=== PATIENT | female | born 1970 | race Caucasian/White ===

== ENCOUNTER 2018-05-06 00:28 | Outpatient (CLI) | payer OTHER, SELFPAY ==
--- NOTE | 2018-05-06 08:15 | DI.MAMMO_ITS ---
SYMPTOM/DIAGNOSIS: SCREENING, [facility] Z00.00 BILATERAL SCREENING MAMMOGRAM: Mammograms were interpreted according to the usual protocol including computer analysis with CAD system, tomosynthesis and C view imaging. Comparison is made with exams from 2008 through 2017. The patient is status post breast reduction. There are mild bilateral areas of scarring. The breasts are composed of heterogeneously dense fibroglandular tissue, breast density category C. No suspicious masses or suspicious microcalcifications are seen. There has been no change when compared with the post reduction exams. IMPRESSION: Category 2-C, negative mammogram with benign findings. Yearly screening mammography is recommended. [facility] [[email or web address]] ASSESSMENT OF FINDINGS: Negative with benign findings. Category 2. Patient will receive a letter notifying them of these results. Bi-RADS category C. The breasts are heterogeneously dense, which may obscure small masses.
== END 2018-05-06 00:48 ==
PROVIDERS: PCP Family Medicine; Visit Provider Family Medicine
DX: Z00.00 Encounter for general adult medical examination without abnormal findings (principal); Z12.31 Encounter for screening mammogram for malignant neoplasm of breast
CPT/HCPCS: 77063; 77067

== ENCOUNTER 2018-09-23 08:53 | Outpatient (REF) | payer OTHER, SELFPAY ==
[2018-09-24 08:30] LABS: Anion Gap 5.8 mmol/L (3-11); BUN 16 mg/dL (7-18); CO2 32.2 mmol/L (21.0-32.0); CREATININE 0.96 mg/dL (0.55-1.02); Calcium 8.6 mg/dL (8.5-10.1); Chloride 105 mmol/L (98-107); Glucose 93 mg/dL (70-100); Potassium 3.6 mmol/L (3.5-5.1); Sodium 143 mmol/L (136-145)
[2018-09-24 18:40] LABS: Cholesterol 134 mg/dL (50-200); HDL Cholesterol 45 mg/dL (40-60); LDL CHOLESTEROL 78 mg/dL (<100); Triglyceride 62 mg/dL (30-150)
[2018-09-25 05:15] LABS: Vitamin D 25 Total 33.2 ng/ml (30-100)
== END 2018-09-23 09:13 ==
LOC: NCHCN 08:53
PROVIDERS: PCP Family Medicine; Visit Provider Family Medicine
DX: Z00.00 Encounter for general adult medical examination without abnormal findings (principal); E55.9 Vitamin D deficiency, unspecified
CPT/HCPCS: 80048; 80061; 82306; 83721

== ENCOUNTER 2019-05-26 00:40 | Outpatient (CLI) | payer OTHER, SELFPAY ==
--- NOTE | 2019-05-26 15:30 | DI.MAMMO_ITS ---
EXAM: MG MAMMO SCREENING CLINICAL HISTORY: SCREENING, Z12.39. TECHNIQUE: Bilateral full field digital CC and MLO mammographic images were obtained with 3D tomosyn thesis and utilizing computer aided detection (CAD). COMPARISON: There are multiple priors with the most recent from 05/06/2018. FINDINGS: Masses/Architectural Distortion: There again seen postsurgical changes of bilateral breast reduction. There is asymmetric density in the posterior left breast seen on the mediolateral oblique view. Th is may represent normal fibroglandular tissue. Spot compression view is requested for further evalua tion. Ultrasound may be indicated at that time. Microcalcifications: No suspicious pleomorphic-type are seen. IMPRESSION: 1. Asymmetric breast tissue in the posterior upper left breast on the mediolateral oblique view. Spo t compression view and ultrasound are requested for further evaluation. BI-RADS Cat 0 - Assessment Incomplete: Need additional imaging evaluation Breast Density - Category B - Scattered areas of fibroglandular density A negative radiographic report should not delay biopsy if a dominant or clinically suspicious mass is present. Up to ten percent of cancers are not identified on mammography. A negative report may reinforce clinical impression. Adenosis and dense breasts may obscure an underlying neoplasm. False positive reports average 6 to 10%.
== END 2019-05-26 01:00 ==
PROVIDERS: PCP Family Medicine; Visit Provider Family Medicine
DX: Z12.31 Encounter for screening mammogram for malignant neoplasm of breast (principal); R92.8 Other abnormal and inconclusive findings on diagnostic imaging of breast
CPT/HCPCS: 77063; 77067

== ENCOUNTER 2019-05-29 00:23 | Outpatient (CLI) | payer OTHER, SELFPAY ==
--- NOTE | 2019-05-29 14:00 | DI.US_ITS ---
EXAM: MG MAMMO SCREEN CALL BACK UNI AND US BREAST LT LIMITED CLINICAL HISTORY: S/P ABNORMAL MAMMO, ASYMMETRIC DENSITY IN POSTERIOR LT BREAST. TECHNIQUE: Additional images are interpreted according to the usual protocol including tomosynthesis and 2D imaging. Ultrasound was performed using standard protocol. COMPARISON: MAMMOGRAM FROM 05/26/19 FINDINGS: Additional mammographic views of the left breast and left breast ultrasound are interpreted in conjun ction. These examinations were obtained to evaluate questionable area of asymmetric density projecte d posteriorly in the lateral portion of the breast on recent mammogram. Additional mammographic view s fail to show a discrete mass. Breast ultrasound shows no evidence of a mass or cyst. IMPRESSION: No specific evidence of malignancy at this time. Follow-up unilateral left breast mammogram requested in 6 months. Category 3, breast density category B. BI-RADS Cat 3 - 6 month - Probably Benign Finding: Recommend follow-up mammography in 6 months Breast Density - Category B - Scattered areas of fibroglandular density
== END 2019-05-29 00:43 ==
PROVIDERS: PCP Family Medicine; Visit Provider Family Medicine
DX: Z12.31 Encounter for screening mammogram for malignant neoplasm of breast (principal); R92.8 Other abnormal and inconclusive findings on diagnostic imaging of breast; N64.59 Other signs and symptoms in breast
CPT/HCPCS: 76642; 77063; 77067

== ENCOUNTER 2019-12-07 01:44 | Outpatient (CLI) | payer OTHER, SELFPAY ==
--- NOTE | 2019-12-07 | DI.MAMMO_ITS ---
EXAM: MG MAMMO DIAGNOSTIC UNI CLINICAL HISTORY: 6 MO F/U, F/U ABNL MAMMO, Z87.898. COMPARISON: Screening Bilat Mammo from 12/15/2013 Screening Bilat Mammo from 12/27/2015 Screening Bilat Mammo from 05/03/2017 MG mammo screening from 05/06/2018 MG MAMMO SCREENING from 05/26/2019 MG MAMMO SCREEN CALL BACK UNI from 05/29/2019 TECHNIQUE: Craniocaudal and mediolateral oblique Full Field Digital Mammography views of the left br east with Computer Aided Diagnosis and tomosynthesis imaging were performed. FINDINGS: Mammography/Tomosynthesis left breast: This is a six-month follow-up exam for a previously questioned posterior asymmetric density. Masses/Architectural Distortion: None seen. Scarring related to breast reduction is noted. Microcalcifications: No suspicious pleomorphic-type are seen. Skin Thickening/Nipple Retraction: None. IMPRESSION: 1. No evidence of malignancy is noted. 2. Unless there is more urgent need, follow-up screening mammography is recommended, as per [employer] guidelines. BI-RADS Cat 2 - Benign Findings Breast Density - Category B - Scattered areas of fibroglandular density A negative radiographic report should not delay biopsy if a dominant or clinically suspicious mass is present. Up to ten percent of cancers are not identified on mammography. A negative report may reinforce clinical impression. Adenosis and dense breasts may obscure an underlying neoplasm. False positive reports average 6 to 10%. Patient will receive a letter notifying them of these results.
== END 2019-12-07 02:04 ==
PROVIDERS: PCP Family Medicine; Referring Provider Family Medicine; Visit Provider Family Medicine
DX: Z12.31 Encounter for screening mammogram for malignant neoplasm of breast (principal); R92.8 Other abnormal and inconclusive findings on diagnostic imaging of breast; N64.59 Other signs and symptoms in breast
CPT/HCPCS: 77061; 77065; G0279

== ENCOUNTER 2021-01-02 19:36 | Outpatient (REF) | payer OTHER, SELFPAY ==
[2021-01-02 18:28] LABS: Iron 81 ug/dL (50-170)
[2021-01-02 18:40] LABS: ALT 28 U/L (14-59); AST 24 U/L (15-37); Albumin 3.8 g/dL (3.4-5.0); Alkaline Phosphatase 56 U/L (46-116); Anion Gap 7.9 mmol/L (3-11); BUN 18 mg/dL (7-18); Bilirubin, Total 1.3 mg/dL (0.2-1.0); CO2 29.1 mmol/L (21.0-32.0); CREATININE 0.9 mg/dL (0.55-1.02); Calcium 8.8 mg/dL (8.5-10.1); Chloride 104 mmol/L (98-107); Ferritin 133 ng/mL (8-252); Glucose 93 mg/dL (74-106); Potassium 4.8 mmol/L (3.5-5.1); Sodium 141 mmol/L (136-145); Total Protein 6.8 g/dL (6.4-8.2)
== END 2021-01-02 19:37 | disposition home or self-care (01) ==
LOC: NCHCN 19:36
PROVIDERS: PCP Family Medicine; Visit Provider Family Medicine
DX: L65.9 Nonscarring hair loss, unspecified (principal)
CPT/HCPCS: 80053; 82728; 83540; 84443

== ENCOUNTER 2021-07-18 09:57 | Outpatient (REF) | payer BC, SELFPAY ==
[2021-07-17 15:44] LABS: Hemoglobin A1C 5.1 % (<5.7)
[2021-07-17 15:57] LABS: TSH (W/Ref FT4) 1.47 uIU/mL (0.36-3.74)
[2021-07-17 16:45] LABS: Vitamin D 25 Total 29.5 ng/mL (30-100)
[2021-07-18 10:11] LABS: HIV-1/2 Ag & Ab Screen Negative (Negative)
[2021-07-18 10:27] LABS: Hepatitis C Ab w Rflx HCV PCR Negative (Negative)
== END 2021-07-18 09:58 | disposition home or self-care (01) ==
LOC: NCHCN 09:57
PROVIDERS: PCP Family Medicine; Visit Provider Family Medicine
DX: R63.5 Abnormal weight gain (principal); Z00.00 Encounter for general adult medical examination without abnormal findings; E55.9 Vitamin D deficiency, unspecified; Z11.4 Encounter for screening for human immunodeficiency virus [HIV]; Z11.59 Encounter for screening for other viral diseases
CPT/HCPCS: 82306; 86803; 87389; 83036; 84443

== ENCOUNTER 2021-07-21 00:31 | Outpatient (CLI) | payer BC, SELFPAY ==
--- NOTE | 2021-07-21 10:20 | DI.MAMMO_ITS ---
Exam(s) MAMMO SCREENING EXAM: MAMMO SCREENING CLINICAL HISTORY: SCREENING, Z12.39 TECHNIQUE: Mammograms were interpreted according to the usual protocol including computer analysis w [employer]ZE CAD system, tomosynthesis and C-view imaging. COMPARISON: 2012 through 2019 FINDINGS: The breasts are composed of scattered fibroglandular densities, Breast Density category B. Patient is status post bilateral breast reduction in there is some bilateral scarring. No suspicious masses or suspicious microcalcifications are seen. No skin thickening or abnormal axillary lymph nodes are seen. There has been no significant change from prior exams. IMPRESSION: BI-RADS Cat 2 - Benign Findings Yearly screening mammography is recommended. Breast Density - Category B, scattered fibroglandular densities. A negative radiographic report should not delay biopsy if a dominant or clinically suspicious mass is present. Up to ten percent of cancers are not identified on mammography. A negative report may reinforce clinical impression. Adenosis and dense breasts may obscure an underlying neoplasm. False positive reports average 6 to 10%. Patient will receive a letter notifying them of these results.
== END 2021-07-21 00:51 ==
PROVIDERS: PCP Family Medicine; Visit Provider Family Medicine
DX: Z12.31 Encounter for screening mammogram for malignant neoplasm of breast (principal)
CPT/HCPCS: 77063; 77067

== ENCOUNTER 2022-06-13 06:51 | Day surgery (SDC) | payer BC, SELFPAY ==
--- NOTE | 2022-06-13 06:23 | COLE_ITS ---
Colonoscopy Report Date of procedure: 06/13/22 Pre-op diagnosis general: colon cancer screening Post-op diagnosis procedure note: same Procedure: Colonoscopy Surgeon: Darlin Escalante Anesthesia Type: General:No Airway Estimated blood loss (mL): 0 Pathology: none sent Complications: None Disposition: same day Indications: I was pleased to meet Cady in the office today to discuss screening colonoscopy as part of her routine health maintenance.? She is 52 years old and she has not undergone any previous colonoscopies.? She denies melena and hematochezia.? She has some occasional dyspepsia that is easily managed with zpnw-jgy-nwovjiv occasions.? To her knowledge, she has no family medical history of colorectal cancers.? Review of systems is only significant for some mild exertional dyspnea with a large flight of steps.? She is able to get up the steps without diffi culty, and her mild dyspnea at some point had thereafter.? Her surgical history is significant for hysterectomy. Risks, benefits and complications have been reviewed. Complications include but are not limited to bleeding, pain, perforation, missed small lesion/polyp, sore throat, aspiration and adverse reaction to the medications. Questions were entertained and answered to their satisfaction and they wished to proceed. No guarantees were given or implied. Prep: Miralax/Dulcolax Procedure Start Time: 08:16 Procedure End Time: 08:38 Retraction Time: 12 minutes Findings: Normal colon Procedure Description: After informed consent was obtained the patient was taken to the procedure room and placed in a left decubitous position. Monitors were applied and a time out was done. The patients name, date of , procedure, allergies to medications and metal in their body was reviewed. The patient was then sedated. Once sedated and comfortable a rectal exam was done. External exam was normal. Internal exam revealed a normal sphincter tone and no palpable masses. The scope was then introduced and retro-flexed. No internal hemorrhoids, polyps or masses were identified on retro-flexion. The scope was then advanced to the cecum without difficulty. The ileocecal vlave and appendiceal orifice were identified. The prep was good. The scope was then slowly retracted over 12 minutes back into the rectum. There were no Polyps and there was no diverticulosis noted. The scope was removed and the patient was woken up and taken back to Same day surgery in stable condition. The patient tolerated the procedure well and there were no immediate complications.
--- NOTE | 2022-06-13 06:24 | W.PM.DSUDISC ---
Discharge Plan Disposition Patient Disposition: HOME Condition: Good Discharge Details Reason For Visit: colonoscopy Attending Provider: Darlin Escalante Primary Care Provider: Dacia Lee Home Meds and New Rx's Prescriptions: Continued meloxicam 7.5 mg tablet 7.5 mg PO DAILY cholecalciferol (vitamin D3) 125 mcg (5,000 unit) capsule 125 mcg PO DAILY vitamin K2 100 mcg capsule 100 mcg PO DAILY ibuprofen [Advil] 100 MG tablet,chewable 200 mg PO Q4H PRN melatonin 10 mg capsule 20 mg PO HS PRN finasteride 5 mg tablet 2.5 mg PO DAILY zolpidem 10 mg tablet 10 mg PO QHS PRN Discontinued polyethylene glycol 3350 17 gram/dose powder 238 g PO ONCE Qty: 238 0RF Rx Instructions: take per colonoscopy instructions bisacodyl [Dulcolax (bisacodyl)] 5 mg tablet,delayed release (DR/EC) 5 mg PO ONCE Qty: 4 0RF Rx Instructions: take per colonoscopy instructions Discharge Instructions Additional Instructions: Findings: Normal colonoscopy Follow up: 10 years Please call if you develop: fevers >101.5 Nausea or Vomiting Abdominal pain that is not transient Rectal bleeding that is more then a tbsp A hard abdomen and inability to pass gas DAY SURGERY UNIT POST ENDOSCOPY INSTRUCTIONS Instructions for everyone who is given Anesthesia: For your safety, please do the following for the next 24 Hours: a. Do not drive or operate dangerous equipment b. Do not drink alcohol beverages or use any recreational drugs for the first 24 hours or while taking pain medications. The medications in your body may have a reaction that can be dangerous. c. Do not make any important decisions or sign any important papers 1. Generally there are no restrictions on your activity after a day or so has gone by, but you may feel a bit fatigued for a few days. 2. After you arrive home you may have a light meal and return to a normal diet as you can tolerate it without feeling sick to your stomach. 3. After surgery, you may feel pain or discomfort. This should be only transient, but if it persists please contact your doctor. 4. If there are any questions regarding the findings of your procedure, please feel free to contact your doctor. 6. If you are unable to contact your doctor with a problem, contact the hospital at [phone]. 7. Continue all your regular medications unless directed otherwise. I understand the above instructions and have no questions. Signature of Patient or Responsible Adult Escort Date/Time Name of Responsible Adult Escort Signature of Nurse Date/Time Activity:: Activity as Tolerated Diet:: As Tolerated Discharge Orders Discharge Orders: Discharge Order (Routine); Ordered 06/13/22 Ordered By: Darlin Escalante
[2022-06-13 06:52] VITALS: BP 107/62; PULSE 76; RESP 18; TEMP 36.4; O2SAT 98
[2022-06-13] MEDS: Lactated Ringers 1,000 ML 80 ML IV (07:26)
--- NOTE | 2022-06-13 07:34 | W.ANESPRE ---
General Info Date of Service Date Performed: 06/13/22 Height: 5 ft 7.5 in Weight: 92.8 kg Body Mass Index (BMI): 31.6 Surgical Procedure: Operation Date: 06/13/22 08:35 Proposed Procedure Side Surgeon p Colonoscopy Darlin Escalante MD Meds Allergies and Home Medications Allergies Allergy/AdvReac Type Severity Reaction Status Date / Time oxycodone AdvReac Intermediate Headache Unverified 06/13/22 06:52 Home Medication Medication Instructions Recorded ibuprofen 100 mg chewable tablet 200 mg PO Q4H PRN 06/22/15 (Advil) finasteride 5 mg tablet 2.5 mg PO DAILY 08/29/21 melatonin 10 mg capsule 20 mg PO HS PRN 08/29/21 zolpidem 10 mg tablet 10 mg PO QHS PRN 08/29/21 bisacodyl 5 mg tablet,delayed 5 mg PO ONCE colonscopy bowel prep 05/21/22 release (Dulcolax (bisacodyl)) #4 tabs cholecalciferol (vitamin D3) 125 125 mcg PO DAILY 05/21/22 mcg (5,000 unit) capsule meloxicam 7.5 mg tablet 7.5 mg PO DAILY 05/21/22 polyethylene glycol 3350 17 238 g PO ONCE colonoscopy prep 05/21/22 gram/dose oral powder #238 grams vitamin K2 100 mcg capsule 100 mcg PO DAILY 05/21/22 Current Visit Medications: Current Medications Generic Name Dose Route Start Last Admin Trade Name Freq PRN Reason Stop Dose Admin Hyoscyamine Sulfate 0.125 mg 06/13/22 06:24 Hyoscyamine 0.125 Mg Sl/Oral/Chew SL DIRECTED PRN Ringer's Solution 1,000 mls @ 80 mls/hr 06/13/22 06:00 06/13/22 07:26 IV 07/12/22 23:59 80 mls/hr INFUSION HELENE Administration IV Miscellaneous Supplies 1 each 06/13/22 06:00 Iv Access IV 07/12/22 23:59 DIRECTED HELENE Ondansetron HCl 4 mg 06/13/22 06:24 Ondansetron 4 Mg/2 Ml Vial IVP Q4H PRN PRN Nausea / Vomiting Sodium Chloride 0 ml 06/13/22 06:00 Normal Saline Flush 10 Ml Syr IV 07/12/22 23:59 PRN PRN Sodium Chloride 0 ml 06/13/22 06:00 Normal Saline 10 Ml Vial IJ 07/12/22 23:59 DIRECTED PRN Sterile Water 0 ml 06/13/22 06:00 Water,Injection,Sterile 10 Ml Vial IJ 07/12/22 23:59 DIRECTED PRN PFSH Active Problems Active Problems: Problem Status Onset Code Vitamin D deficiency E55.9 Obesity E66.9 Screening for colon cancer Z12.11 Medical History Medical History Alopecia Family history of breast cancer Insomnia Metatarsalgia 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) Surgical History Surgical History Endometrial Ablation H/O: hysterectomy Ligation of fallopian tube Reduction mammoplasty S/P FRANCISCO (total abdominal hysterectomy) (05/18/15) Tobacco Smoking/Tobacco Use Status: Never Alcohol Alcohol Intake: current Alcohol intake frequency: 0-2 drinks per day Alcohol type: wine Substance Use Substance use: Never Substance use type: does not use Vital Signs and Lab Results Vital Signs Most Recent Vital Signs in EMR: Most Recent Vital Signs Temp Pulse Resp BP Pulse Ox 36.4 C L 76 18 107/62 98 06/13/22 06:52 06/13/22 06:52 06/13/22 06:52 06/13/22 06:52 06/13/22 06:52 Lab Results Blood Type / Crossmatch: No Data to Display Complete Blood Count: No Data to Display Complete Metabolic Panel: No Data to Display Liver Function Panel: No Data to Display Coagulation Panel: No Data to Display Cardiac Panel: No Data to Display Arterial Blood Gas: No Data to Display Venous Blood Gas: No Data to Display Pancreas Panel: No Data to Display Thyroid Panel: No Data to Display Infectious Disease: No Data to Display Blood Cultures: No Data to Display Toxicology Panel: No Data to Display Panel: No Data to Display Anesthesia Assessment and Plan Anesthesia History Personal History: No History of Anesthesia Complications Family History: No Family History of Anesthesia Complications Exercise Tolerance Exercise Tolerance: Metabolic Equivalents>4 Pertinent Negatives Pertinent Negatives: No Symptoms of GERD, No Major Cardiovascular Symptoms or Complaints, No Major Pulmonary Symptoms or Complaints and No History of CVA/TIA Cardiac & Pulmonary Exam Cardiac Exam: Normal S1/S2 Heart Sounds Pulmonary Exam: Clear Bilateral Breath Sounds Implantable Cardiac Device Does patient have a Pacemaker or an ICD?: No Airway Exam Known Difficult Airway: No Mallampati Class: 1 Mouth Opening: Normal (> 3cm) Thyromental Distance: Greater than 3 cm Neck Range of Motion: Full ROM Neck Circumference: Normal Teeth Condition: Normal Dentition ASA Classification ASA Score: ASA 2 Emergency Case?: No NPO Status NPO Status: NPO Clears >2 hours, Solids >8 hours Status Status: History of Hysterectomy Anesthesia Plan Resuscitation Status: Full Code Anesthesia Technique: General Anesthesia Airway Planned: Natural Airway Monitors Used: Standard Monitors
[2022-06-13 08:06] VITALS: BMI 31.6
[2022-06-13 08:45] VITALS: BP 99/61; PULSE 64; RESP 16; TEMP 36.4; O2SAT 97
--- NOTE | 2022-06-13 08:54 | W.ANESPOSTOP ---
Postoperative Evaluation Date, Time and Location Date Performed: 06/13/22 Time Performed: 08:49 Patient Location: Day Surgery Unit Vital Signs Most Recent Imported Vital Signs: Most Recent Vital Signs Temp Pulse Resp BP Pulse Ox 36.4 C L 64 16 99/61 L 97 06/13/22 08:45 06/13/22 08:45 06/13/22 08:45 06/13/22 08:45 06/13/22 08:45 Pain Score Most Recent Pain Score: Most Recent Pain Score Pain Level 0 06/13/22 08:45 Assessment Mental Status: Awake (Alert & Oriented to Patient Baseline) Airway and Respiratory Function: Patent airway with normal (patient baseline) respiratory exam Cardiovascular Function: Hemodynamically Stable Hydration Status: Adequately Hydrated Nausea & Vomiting: No Nausea or Vomiting Pain: Pt. Denies Any Pain Peripheral Nerve Block: Patient did not receive a nerve block
[2022-06-13 09:10] VITALS: BP 106/55; PULSE 56; RESP 18; TEMP 36.3; O2SAT 99
== END 2022-06-13 09:36 | disposition home or self-care (01) ==
PROVIDERS: PCP Family Medicine; Visit Provider Surgery
PROC: 0DJD8ZZ Inspection of Lower Intestinal Tract, Via Natural or Artificial Opening Endoscopic (ICD-10-PCS; CPT 45378; principal; 2022-06-13 08:30)
DX: Z12.11 Encounter for screening for malignant neoplasm of colon (principal); E66.9 Obesity, unspecified; E55.9 Vitamin D deficiency, unspecified; Z79.899 Other long term (current) drug therapy
CPT/HCPCS: 45378

== ENCOUNTER 2022-11-13 01:40 | Outpatient (CLI) | payer BC, SELFPAY ==
--- NOTE | 2022-11-13 | DI.MAMMO_ITS ---
Exam(s) MAMMO SCREENING EXAM: MAMMO SCREENING CLINICAL HISTORY: SCREENING, Z12.39 TECHNIQUE: Bilateral full field digital CC and MLO mammographic images were obtained with 3D tomosyn thesis and utilizing computer aided detection (CAD). COMPARISON: Available for comparison. FINDINGS: Masses/Architectural Distortion: None seen. Status post bilateral breast reduction. Microcalcifications: No suspicious pleomorphic-type are seen. Skin Thickening/Nipple Retraction: None. IMPRESSION: 1. No significant interval change with no specific features of malignancy noted. 2. Unless there is more urgent need, screening mammography is recommended, as per [employer] guidelines. BI-RADS Category 1 - Negative Breast Density - Category B - Scattered areas of fibroglandular density Breast density category C or D implies that the patient has dense breast tissue. Dense breast tissue is very common and is not abnormal but dense breast tissue can make it harder to find cancer on a ma mmogram. Also, dense breast tissue may increase their breast cancer risk. This information about the result of the mammogram report was provided to the patient to raise their awareness. Use this report when you speak with the patient about their risks for breast cancer, which includes their family hist ory. At that time, you may recommend for more screening tests (Ultrasound or MRI) as they might be us eful based on their risk. A negative radiographic report should not delay biopsy if a dominant or clinically suspicious mass is present. Up to ten percent of cancers are not identified on mammography. A negative report may reinforce clinical impression. Adenosis and dense breasts may obscure an underlying neoplasm. False positive reports average 6 to 10%. Patient will receive a letter notifying them of these results.
== END 2022-11-13 02:00 ==
LOC: DI 01:41
PROVIDERS: PCP Family Medicine; Visit Provider Family Medicine
DX: Z12.31 Encounter for screening mammogram for malignant neoplasm of breast (principal)
CPT/HCPCS: 77063; 77067

== ENCOUNTER 2023-01-25 00:32 | Outpatient (CLI) | payer BC, SELFPAY ==
--- NOTE | 2023-01-25 | DI.RAD_ITS ---
Exam(s) XR HIP LT COMPLETE AP PELVIS EXAM: XR HIP LT COMPLETE AP PELVIS INDICATION: LT HIP PAIN, M25.552. COMPARISON: No exams were available for comparison TECHNIQUE: 2D digital imaging was performed. Three views. FINDINGS: Mild symmetric bilateral hip joint space narrowing. Minimal acetabular spurring. Minimal spurring a t the margins of the femoral heads. SI joints show mild degenerative changes. IMPRESSION: Mild degenerative changes. DATA REPOSITORY: RADIATION DOSE DELIVERED:
== END 2023-01-25 00:52 ==
LOC: DI 00:32
PROVIDERS: PCP Family Medicine; Visit Provider Family Medicine
DX: M16.0 Bilateral primary osteoarthritis of hip (principal)
CPT/HCPCS: 73502

== ENCOUNTER 2023-07-19 14:06 | Outpatient (REF) | payer BC, SELFPAY ==
[2023-07-19 17:51] LABS: Calculated LDL 131 mg/dL (<100); Cholesterol 203 mg/dL (<200); HDL Cholesterol 53 mg/dL (40-60); Triglyceride 99 mg/dL (<150)
[2023-07-19 18:07] LABS: C-Reactive Protein 0.14 mg/dL (0.0-0.3); Creatine Kinase 86 U/L (26-192)
[2023-07-19 18:13] LABS: Vitamin D 25 Total 58.7 ng/mL (30-100)
[2023-07-22 09:29] LABS: Cyclic Citrullinated Peptide <2.5 U/mL (<5.0)
[2023-07-22 14:56] LABS: ANA Interpretation Positive (Negative); ANA Titer Pattern 1:320 Homogeneous
== END 2023-07-19 14:07 | disposition home or self-care (01) ==
LOC: NCHCN 14:06
PROVIDERS: PCP Family Medicine; Visit Provider Family Medicine
DX: M62.81 Muscle weakness (generalized) (principal); E55.9 Vitamin D deficiency, unspecified; M25.551 Pain in right hip; M25.552 Pain in left hip; Z13.6 Encounter for screening for cardiovascular disorders
CPT/HCPCS: 80061; 82306; 82550; 86200; 86038; 86140

== ENCOUNTER 2023-08-02 03:28 | Outpatient (CLI) | payer BC, SELFPAY ==
[2023-08-06 12:19] LABS: Lyme Ab w Rflx to Lyme Confirm Equivocal (Negative)
[2023-08-06 14:14] LABS: Lyme IgG Ab Negative (Negative); Lyme IgM Ab Positive (Negative)
[2023-08-06 15:10] LABS: RNP Ab, IgG <6.0 CU (<20.0); SS-B (La) Ab, IgG <3.3 CU (<20.0); Sm (Smith) Ab, IgG <8.0 CU (<20.0)
[2023-08-06 15:15] LABS: dsDNA Ab, IgG <22.0 IU/mL (<27.0)
== END 2023-08-02 03:29 | disposition home or self-care (01) ==
PROVIDERS: PCP Family Medicine; Visit Provider Family Medicine
DX: R76.8 Other specified abnormal immunological findings in serum (principal)
CPT/HCPCS: 36415; 86617; 86225; 86235; 86618

== ENCOUNTER 2023-09-02 05:22 | Outpatient (CLI) | payer BC, SELFPAY ==
[2023-09-04 12:18] LABS: Lyme Ab w Rflx to Lyme Confirm Equivocal (Negative)
[2023-09-04 13:08] LABS: Lyme IgG Ab Negative (Negative); Lyme IgM Ab Positive (Negative)
== END 2023-09-02 05:23 | disposition home or self-care (01) ==
LOC: LBO 05:24
PROVIDERS: PCP Family Medicine; Visit Provider Family Medicine
DX: A69.20 Lyme disease, unspecified (principal)
CPT/HCPCS: 36415; 86617; 86618

== ENCOUNTER 2023-10-07 11:21 | Outpatient (REF) | payer BC, SELFPAY ==
[2023-10-07 19:04] LABS: HCT 37.9 % (36.0-46.0); HGB 12.4 g/dL (11.2-15.7); MCH 30.9 pg (27.0-33.0); MCHC 32.7 % (32.0-36.0); MCV 95 fL (80-95); Platelet Count 295 10^3/uL (130-400); RBC 4.01 10^6/uL (3.93-5.22); RDW 12.8 % (11.7-14.6); RDW-SD 44.4 fL; WBC 4.19 10^3/uL (4.4-10.8)
[2023-10-07 19:20] LABS: ALT 25 U/L (14-59); AST 17 U/L (15-37); Albumin 3.7 g/dL (3.4-5.0); Alkaline Phosphatase 60 U/L (46-116); Anion Gap 7.1 mmol/L (3-11); BUN 16 mg/dL (7-18); Bilirubin, Total 0.7 mg/dL (0.2-1.0); CO2 30.9 mmol/L (21.0-32.0); CREATININE 0.9 mg/dL (0.55-1.02); Calcium 9.3 mg/dL (8.5-10.1); Chloride 106 mmol/L (98-107); Estimated GFR 76.44 (mL/min/1.73m2); Glucose 74 mg/dL (74-106); Potassium 3.9 mmol/L (3.5-5.1); Sodium 144 mmol/L (136-145); TSH (W/Ref FT4) 1.73 uIU/mL (0.36-3.74); Total Protein 6.7 g/dL (6.4-8.2)
[2023-10-07 19:44] LABS: Hemoglobin A1C 5.1 % (<5.7)
== END 2023-10-07 11:22 | disposition home or self-care (01) ==
LOC: NCHCN 11:21
PROVIDERS: PCP Family Medicine; Visit Provider Family Medicine
DX: R53.83 Other fatigue (principal); Z13.1 Encounter for screening for diabetes mellitus
CPT/HCPCS: 80053; 85027; 83036; 84443

== ENCOUNTER → 2023-12-10 02:56 | Outpatient (CLI) | payer BC, SELFPAY ==
--- NOTE | 2023-12-10 08:30 | DI.MAMMO_ITS ---
Exam(s) MAMMO SCREENING EXAM: MAMMO SCREENING CLINICAL HISTORY: SCREENING MAMMO FOR BREAST CANCER Z12.39 TECHNIQUE: Mammograms were interpreted according to the usual protocol including computer analysis w [employer] CAD system, tomosynthesis and C-view imaging. COMPARISON: 2013 through 2022 FINDINGS: The breasts are composed of scattered fibroglandular densities, Breast Density category B. No suspicious masses or suspicious microcalcifications are seen. Bilateral scarring again noted rela emy to prior breast reduction surgery. No skin thickening or abnormal axillary lymph nodes are seen. There has been no significant change from prior exams. IMPRESSION: BI-RADS category 2, negative with benign findings. Yearly screening mammography is recommended. Breast Density - Category B, scattered fibroglandular densities. A negative radiographic report should not delay biopsy if a dominant or clinically suspicious mass is present. Up to ten percent of cancers are not identified on mammography. A negative report may reinforce clinical impression. Adenosis and dense breasts may obscure an underlying neoplasm. False positive reports average 6 to 10%. Patient will receive a letter notifying them of these results.
== END ==
PROVIDERS: PCP Family Medicine; Visit Provider Family Medicine
DX: Z12.31 Encounter for screening mammogram for malignant neoplasm of breast (principal)
CPT/HCPCS: 77063; 77067

== ENCOUNTER 2024-02-26 02:41 | Outpatient (CLI) | payer BC, SELFPAY ==
[2024-02-26 15:18] LABS: Kit/Specimen SENT
== END 2024-02-26 02:42 | disposition home or self-care (01) ==
LOC: LBO 02:41
PROVIDERS: PCP Family Medicine; Visit Provider Naturopath
DX: Z00.00 Encounter for general adult medical examination without abnormal findings (principal)
CPT/HCPCS: 36415

== ENCOUNTER 2024-03-10 04:32 | Outpatient (CLI) | payer BC, SELFPAY ==
--- OUTSIDE RECORDS SUMMARY | 2024-03-10 04:55 | XMS_ITS | Encounter Summary ---
Author Organization [facility] Address [address] [place] [address] Care Team Providers Care Posting Machine Operator Name Role Phone JungInez NP Primary Care Provider [phone] Encounter Details Date Type Department Care Team (Late st Contact Info) Description 11/25/2013 Results Only [facility] - [facility] ([facility] [address], [place] [id number] Dacia Pérez MD [address] [place] [address] Social History Tobacco Use Types Packs/Day Years Used Date Smoking Tobacco: Never Assessed Sex and Gender Information Value Date Recorded Sex Assigned at Not on file Gender Identity Not on file Sexual Orientation Not on file documented as of this encounter Plan of Treatment Not on file documented as of this encounter Procedures Procedure Name Priority Date/Time Associated Diagnosis Comments PAP TEST- RESULT ONLY Routine 11/25/2013 0:00 EDT documented in this encounter Results * PAP TEST- RESULT ONLY (11/25/2013 0:00 EDT) Pathology Report: CYTOPATHOLOGY REPORT Reports generated via electronic interface contain original data; however they are lacking the format of the original report. Caution should be taken when reading/interpreti ng unformatted reports. Name: ? JAIRO AYALA ? Accession #: ? [id number] ? : ? 1970 (Age: 43) ??F ?Collect Date: ? 11/25/2013 ? Location: ? [facility] ? Receive Date: ? 11/26/2013 ? Provider: DACIA PÉREZ MD Copy to: ? Final Report SPECIMEN ADEQUACY ? Satisfactory for Evaluation - transformation zone component present GENERAL CATEGORIZATION ? Negative for Intraepithelial Lesion or Malignancy ?? Last Menstrual Period: 2009 ? Previous Gynecologic Pathology: MARLA III: H/O Treatment History: LEEP: 2002 Specimen/Source: ??Pap Test, Cervix, ThinPrep Imaging System with manual evaluation Document reviewed and electronically signed by: ? BEST Queen(ASCP) ? Report ??Date: 12/01/2013 16:12 HPV with Pap Test ? Date Ordered: ? 12/01/2013 ? Status: ?? Signed Out ?Date Complete: ? 12/04/2013 ? By: ??System Interface ? Date Reported: ? 12/04/2013 ? Interpretation RESULT: Negative for HPV. No E6 or E7 mRNA is detected from HPV types 16,18,31,33,35, 39,45,51,52,56,58, 59,66, and 68 by echo technologist mediated amplification. Comments Document reviewed and electronically signed by: ? System Interface ? Report date: 12/04/2013 By the signature above, the attending physician certifies that he/she has personally conducted a gross and/or microscopic examination of the described specimens and rendered or confirmed the above diagnosis. End of Report [facility] 11/25/2013 11/26/2013 Dacia Pérez MD PATHOLOGY ORDERABLES Performing Organization Address City/State/[facility] Co de Phone Number [facility] [address] [place] [address] documented in this encounter Visit Diagnoses Not on filedocumented in this encounter Care Teams Posting Machine Operator Relationship Specialty Start Date End Date Inez Jung NP [address] [place] [address] [phone] PCP - General 10/20/10 03/04/16 documented as of this encounter
--- OUTSIDE RECORDS SUMMARY | 2024-03-10 04:55 | XMS_ITS | Encounter Summary ---
Author Organization [facility] Address [address] [place] [address] Care Team Providers Care Mammalogy Teacher Name Role Phone Dacia Lee MD Primary Care Provider [phone] Encounter Details Date Type Department Care Team (Late st Contact Info) Description 07/17/2021 Lab Requisition [facility] Pathology & Laboratory Medicine - [facility] [address] [place], [place] [address] Outr Resulting Lab, Provider Social History Tobacco Use Types Packs/Day Years Used Date Smoking Tobacco: Never Assessed Sex and Gender Information Value Date Recorded Sex Assigned at Not on file Gender Identity Not on file Sexual Orientation Not on file documented as of this encounter Plan of Treatment Not on file documented as of this encounter Procedures Procedure Name Priority Date/Time Associated Diagnosis Comments HEPATITIS C AB W REFLEX TO HCV RNA BY PCR Routine 07/17/2021 9:39 EST documented in this encounter Results * HEPATITIS C AB W REFLEX TO HCV RNA BY PCR (07/17/2021 9:39 EST) Hep C Antibody Negative Negative 07/18/2021 10:22 EST [facility] Blood VENOUS BLOOD / Unknown 07/17/2021 9:39 EST 07/17/2021 21:38 EST Provider Outr Resulting Lab CHEMISTRY & BLOOD GAS ORDERABLES [facility] [address] [place] [address] documented in this encounter Visit Diagnoses Not on filedocumented in this encounter Care Teams Mammalogy Teacher Relationship Specialty Start Date End Date Dacia Lee MD [address] [place] [phone] PCP - General 03/05/16 documented as of this encounter
--- OUTSIDE RECORDS SUMMARY | 2024-03-10 04:55 | XMS_ITS | Encounter Summary ---
Author Organization [facility] Address [address] [place] [address] Care Team Providers Care Financial Reporting Advisor Name Role Phone Dacia Lee MD Primary Care Provider [phone] Encounter Details Date Type Department Care Team (Late st Contact Info) Description 09/03/2023 Lab Requisition [facility] Pathology & Laboratory Medicine - [facility] [address] [place] [address] Outr Resulting Lab, Provider Social History Tobacco [...] Procedure Name Priority Date/Time Associated Diagnosis Comments LYME ANTIBODY CONFIRMATION Today 09/02/2023 16:06 EST LYME AB Routine 09/02/2023 16:06 EST documented in this encounter Results * (ABNORMAL) LYME ANTIBODY CONFIRMATION (09/02/2023 16:06 EST) Lyme IgG Antibody Negative Negative 024 12:50 EST [facility] Comment:Specific anti-Borrel ia burgdorfei IgG antibodies are not detected. This does not exclude the possibility of B. burgdorferi infection. If exposure to B. burgdorferi is suspected, a second sample should be collected and tested 2-4 weeks later. Lyme IgM Antibody Positive(A) Negative 2023 12:50 EST [facility] Comment:Specific anti-Borrel ia burgdorfei IgM antibodies are detected. Lyme Antibody Confirmation Interpretation See Comment 09/04/2023 12:50 EST [facility] Comment:Indicative of possib le early B. burgdorferi infection, as Lyme IgM is of diagnostic utility only during the first four weeks after the onset of disease. In these cases a second serum specimen can be analyzed in 2-4 weeks to demonstrate seroconversion of IgG. Otherwise, specimens collected more than 1 month following the onset of disease with positive IgM and Negative IgG results more likely represent a false-positive. Blood VENOUS BLOOD / Unknown 09/02/2023 16:06 EST 09/03/2023 17:11 EST Provider Outr Resulting Lab IMMUNOLOGY A ND SEROLOGY ORDERABLES Performing Organization Address [facility] Co de Phone Number [facility] [address] [place] [address] * (ABNORMAL) LYME AB (09/02/2023 16:06 EST) Pathologist [facility] Lyme Ab Equivocal (A) Negative 09/04/2023 12:12 EST [facility] Comment: Lyme confirmation added by reflex. The [employer] Lyme Liaison Lyme Total Antibody Plus assay contains antigens from Borrelia burgdorferi, Borrelia garinii, and Borelia afzelli. Results from the second-step confirmation tests that detect only B. burgdorferi specific antigens should be interpreted with caution. Blood VENOUS BLOOD / Unknown 09/02/2023 16:06 EST 09/03/2023 17:11 EST Provider Outr Resulting Lab IMMUNOLOGY A ND SEROLOGY ORDERABLES Performing Organization Address [facility] Co de Phone Number [facility] [address] [place] [address] documented in this encounter Visit Diagnoses Not on filedocumented in this encounter Care Teams Financial Reporting Advisor Relationship Specialty Start Date End Date Dacia Lee MD [address] [place] [phone] PCP - General 03/05/16 documented as of this encounter
--- OUTSIDE RECORDS SUMMARY | 2024-03-10 04:55 | XMS_ITS | Referral Summary ---
Author Organization [facility] Address [address] [place] [address] Care Team Providers Care Quebracho Tanner Name Role Phone Dacia Lee MD Primary Care Provider [phone] Social History Tobacco Use Types Packs/Day Years Used Date Smoking Tobacco: Never Assessed Sex and Gender Information Value Date Recorded Sex Assigned at Not on file Gender Identity Not on file Sexual Orientation Not on file Plan of Treatment Not on file Procedures Procedure Name Priority Date/Time Associated Diagnosis Comments HEPATITIS C AB W REFLEX TO HCV RNA BY PCR Routine 07/17/2021 9:39 EST from Last 3 Months or Most Recently Relevant to Health Maintenance Results * HEPATITIS C AB W REFLEX TO HCV RNA BY PCR (07/17/2021 9:39 EST) Hep C Antibody Negative Negative 07/18/2021 10:22 EST [facility] Blood VENOUS BLOOD / Unknown 07/17/2021 9:39 EST 07/17/2021 21:38 EST Provider Outr Resulting Lab CHEMISTRY & BLOOD GAS ORDERABLES [facility] [address] [place] [address] from Last 3 Months or Most Recently Relevant to Health Maintenance Care Teams Quebracho Tanner Relationship Specialty Start Date End Date Dacia Lee MD [address] [place] [address] [address] [place] [phone] [facility] - General 03/05/16
--- OUTSIDE RECORDS SUMMARY | 2024-03-10 04:55 | XMS_ITS | Encounter Summary ---
Author Organization [facility] Address [address] [place] [address] Care Team Providers Care Transport Technician Name Role Phone Cassie Jack FREELANCE OPERATOR Primary Care Provider [phone] Encounter Details Date Type Department Care Team (Late st Contact Info) Description 05/12/2015 Results Only [facility]- [facility] [phone] Mechelle Pan MD [address] [place] [address] [place] [phone] Social History Tobacco Use Types Packs/Day Years Used Date Smoking Tobacco: Never Assessed Sex and Gender Information Value Date Recorded Sex Assigned at Not on file Gender Identity Not on file Sexual Orientation Not on file documented as of this encounter Plan of Treatment Not on file documented as of this encounter Procedures Procedure Name Priority Date/Time Associated Diagnosis Comments SURGICAL PATHOLOGY Routine 05/12/2015 19 :57 EDT documented in this encounter Results * SURGICAL PATHOLOGY (05/12/2015 19:57 EDT) Pathology Report: SURGICAL PATHOLOGY REPORT Reports generated via electronic interface contain original data; however they are lacking the format of the original report. Caution should be taken when reading/interpreting unformatted reports. Name: ? JAIRO AYALA ? Accession #: ? [id number] ? : ? 1970 (Age: 45) ??F ? Collect Date: ? 05/12/2015 ? Location: ? [facility] ? Receive Date: ? 05/12/2015 ? Provider: MECHELLE PAN MD Copy to: CASSIE JACK FREELANCE OPERATOR ? Final Pathologic Diagnosis: A. UTERUS, CERVIX, LEFT OVARY AND FALLOPIAN TUBE, HYSTERECTOMY AND LEFT SALPINGO-OOPHORECTOM Y: - ??Cervix: ?? - ??No pathological features. - ??Endometrium: ?? - Few lower uterine segment glands present for histologic evaluation. See Comment. - ??Myometrium: ?? - ??Leiomyomata, intramural and subserosal. ?? - ??Adenomyosis. - ??Serosa: ?? - ??No pathological features. - ??Ovary, left: ?? - ??Tubo-ovarian adhesions. ?? - ??Cystic follicles. - ??Fallopian tube, left: ?? - ??Dystrophic calcifications. B. PERITONEUM, BIOPSY: - ??Endometriosis with dystrophic calcifications. C. FALLOPIAN TUBE, RIGHT, SALPINGECTOMY: - ??Fallopian tube with no pathological features. Comment: ? Re-examination of the specimen shows complete obstruction and obliteration of the uterine cavity by a large leiomyoma (11.7 cm). There is no evidence of residual endometrium. Multiple additional sections were taken, including the area proximal to the cervical stump, and histologic examination of these sections revealed only a few lower uterine segment glands. Orthotic Aide slides were shown at our intradepartmental consensus conference. Document reviewed and electronically signed by: JOSUE CHRISTIANSON MD Report ??Date: 05/19/2015 13:01 By the signature above, the attending physician certifies that he/she has personally conducted a gross and/or microscopic examination of the described specimens and rendered or confirmed the above diagnosis. Specimen(s) Received: A. ?Uterus, left ovary, left tube, cervix B. ? Peritoneum C. ? Right tube Clinical History: Fibroid uterus Gross Description: A. ?Received in formalin labelled with proper patient identification (initials S, S) and uterus, left tube, left ovary, cervix is an intact uterus (708 g, 15.3 cm site of cervix to fundus x 13.1 cm cornu to cornu x 9.2 cm anterior to posterior) with an unoriented detached cervix (0.2 x 3.5 x 3.4 cm) with detached ovary (3.8 x 2.4 x 2.0 cm) and fimbria. Attached to the serosal surface is a segment of fallopian tube (2.0 cm in length x 0.4 cm in diameter). ? In the endometrial cavity is a sanchez-white to yellow firm, rubbery mass (11.7 x 9.5 x 9.2 cm) that shows a whorled appearance with no areas of hemorrhage or necrosis. Definitive endometrium is not identified. The myometrium is sanchez-pink with a striated appearance and multiple intramural and subserosal nodules ranging from 1.1-1.7 cm in greatest dimension. The average myometrial thickness is approximately 1.2 cm. The ectocervix is sanchez-white, smooth, and glistening with a patent pinpoint like os. The endocervix is sanchez-pink and rubbery with a herringbone pattern. The ovarian surface is sanchez-purple to yellow with an irregular granular surface and multiple fluid filled cysts ranging from 0.3-0.6 cm in greatest dimension. Cut surfaces reveal multiple cystic structures around the periphery and areas of white fibrous tissue. The serosal surface of the attached fallopian tube is sanchez-pink, smooth, and glistening with cut surfaces showing an unremarkable pinpoint lumen. ? Orthotic Aide sections are submitted as follows: BLOCK FARRELL A1- ??cervix A2- ??opposite cervix A3- ??anterior cervical amputation site A4- ??possible anterior endometrium and myometrium A5-A6- ??printing supplies sales representative anterior nodules and mass A7- ??posterior cervical amputation site A8- ?? possible posterior endometrium and myometrium A9-A10- ??printing supplies sales representative posterior nodules and mass A11- ?? printing supplies sales representative ovary A12- ??printing supplies sales representative fallopian tube and fimbria (half) A13-A15- lower uterine segment A16- proximal end of detached cervix B. ?Received in formalin labelled with proper patient identification (initials S, S) and peritoneum is a fragment of pink-purple soft tissue (1.5 x 1.0 x 0.2 cm). The specimen is submitted entirely in B1. C. ?Received in formalin labelled with proper patient identification (initials S, S) and right tube is a fimbriated fallopian tube (4.2 cm in length and 0.7 cm in diameter). ??The serosal surface is sanchez-pink, dull, and roughened. ??Sectioning reveals a central pinpoint lumen. 2 printing supplies sales representative cross sections and half of the fimbria are submitted as C1. 05/13/2015 8:53 AM End of Report [facility] 05/12/2015 19:5 7 EDT 05/12/2015 19:57 EDT Mechelle Pan MD PATHOLOGY ORDERABLES [facility] [address] [place] [address] documented in this encounter Visit Diagnoses Not on filedocumented in this encounter Care Teams Transport Technician Relationship Specialty Start Date End Date Cassie Jack NP [address] [place] [phone] PCP - General 10/20/10 03/04/16 documented as of this encounter
--- OUTSIDE RECORDS SUMMARY | 2024-03-10 04:55 | XMS_ITS | Encounter Summary ---
Author Organization [facility] Address [address] [place] [address] Care Team Providers Care Freelance Court Reporter Name Role Phone Dacia Lee MD Primary Care Provider [phone] Encounter Details Date Type Department Care Team (Late st Contact Info) Description 07/20/2023 Lab Requisition [facility] Pathology & Laboratory Medicine - [facility] [address] [place], [place] [address] Outr Resulting Lab, Provider Social History Tobacco [...] Procedure Name Priority Date/Time Associated Diagnosis Comments CCP ANTIBODIES Routine 07/19/2023 14:01 EST ANTI NUCLEAR AB (JOSE LUIS), IFA Routine 07/19/2023 14:01 EST documented in this encounter Results * (ABNORMAL) ANTI NUCLEAR AB (JOSE LUIS), IFA (07/19/2023 14:01 EST) JOSE LUIS Interpretation Positive(A) Negative 07/22/2023 14:51 EST [facility] Comment: For titers greater than or equal to 1:160 (except the centromere and nucleolar patterns) it is recommended that specific follow-up autoantibody testing ??(such as for dsDNA and Extractable Nuclear Antigens) be performed on all diffuse and/or speckled patterns NOTE: For add-on testing dsDNA is stable for 7 days refrigerated while Extractable Nuclear Antigens are only stable for 48 hours refrigerated. JOSE LUIS Titer and Pattern 1 1:320 Homogeneous 07/22/2023 14:51 EST [facility] Blood VENOUS BLOOD / Unknown 07/19/2023 14:01 EST 07/20/2023 21:30 EST Narrative [facility] - 07/22/2023 14:51 EST Results were obtained with the [employer] NOVA Lite HEp-2 JOSE LUIS Kit by indirect immunofluorescence. Provider Outr Resulting Lab IMMUNOLOGY A ND SEROLOGY ORDERABLES Performing Organization Address City/[facility]/ZIP Co de Phone Number [facility] [address] [place] [phone] * CCP ANTIBODIES (07/19/2023 14:01 EST) CCP Antibodies <2.5 <5.0 U/mL 07/22/2023 9:26 EST [facility] Blood VENOUS BLOOD / Unknown 07/19/2023 14:01 EST 07/20/2023 21:30 EST Provider Outr Resulting Lab IMMUNOLOGY A ND SEROLOGY ORDERABLES Performing Organization Address City/[facility] Co de Phone Number [facility] [address] [place] [phone] documented in this encounter Visit Diagnoses Not on filedocumented in this encounter Care Teams Freelance Court Reporter Relationship Specialty Start Date End Date Dacia Lee MD [address] [place] [phone] PCP - General 03/05/16 documented as of this encounter
--- OUTSIDE RECORDS SUMMARY | 2024-03-10 04:55 | XMS_ITS | Encounter Summary ---
Author Organization [facility] Address [address] [place] [address] Care Team Providers Care Banner Painter Name Role Phone Inez Jung SPINNING DOFFER Primary Care Provider [phone] Encounter Details Date Type Department Care Team (Latest Contact Info) Description 05/12/2015 15:38 EDT - 05/12/2015 23:59 EDT Hospital Encounter [address] [address] Unknown, Provider, Discharge Disposition: Home or Self Care Social History Tobacco Use Types Packs/Day Years Used Date Smoking Tobacco: Never Assessed Sex and Gender Information Value Date Recorded Sex Assigned at Not on file Gender Identity Not on file Sexual Orientation Not on file documented as of this encounter Discharge Disposition Disposition Code Departure Means Destination Home or Self [facility] documented in this encounter Plan of Treatment Not on file documented as of this encounter Visit Diagnoses Not on filedocumented in this encounter Care Teams Banner Painter Relationship Specialty Start Date End Date Inez Jung NP [address] [place] [phone] PCP - General 10/20/10 03/04/16 documented as of this encounter
--- OUTSIDE RECORDS SUMMARY | 2024-03-10 04:55 | XMS_ITS | Encounter Summary ---
Author Organization [facility] Address [address] [place] [address] Care Team Providers Care Group Underwriter Name Role Phone Inez Jung DAMARIS Primary Care Provider [phone] Encounter Details Date Type Department Care Team (Late st Contact Info) Description 02/29/2016 Results Only [facility]- [facility] [phone] Bill Tsai, [address] [place] [address] Social History Tobacco Use Types Packs/Day Years Used Date Smoking Tobacco: Never Assessed Sex and Gender Information Value Date Recorded Sex Assigned at Not on file Gender Identity Not on file Sexual Orientation Not on file documented as of this encounter Plan of Treatment Not on file documented as of this encounter Procedures Procedure Name Priority Date/Time Associated Diagnosis Comments SURGICAL PATHOLOGY Routine 02/29/2016 9:49 EDT documented in this encounter Results * SURGICAL PATHOLOGY (02/29/2016 9:49 EDT) Pathology Report: SURGICAL PATHOLOGY REPORT Reports generated via electronic interface contain original data; however they are lacking the format of the original report. Caution should be taken when reading/interpret ing unformatted reports. Name: ? LUCY JAIRO ? Accession #: ? [id number] ? : ? 1970 (Age: 45) ??F ? Collect Date: ? 02/29/2016 ? Location: ? [facility] ? Receive Date: ? 03/01/2016 ? Provider: BILL TSAI DO Copy to: HILL PÉREZ MD ? Final Pathologic Diagnosis: SKIN OF LIP, LEFT LOWER, SHAVE BIOPSY: - Melanocytic nevus, intradermal type. - Lesion extends to peripheral edge and base of biopsy specimen. Document reviewed and electronically signed by: LESLEE SWEET MD Report ??Date: 03/02/2016 14:31 By the signature above, the attending physician certifies that he/she has personally conducted a gross and/or microscopic examination of the described specimens and rendered or confirmed the above diagnosis. Specimen(s) Received: Left lower lip Clinical History: Pedunculated skin lesion; clinical diagnosis code: D49.2 Gross Description: ? Received in formalin labelled with proper patient identification (initials S, S) and left lower lip is a shave biopsy of sanchez smooth papule (0.7 x 0.4 x 0.2 cm). Bisected and submitted in 1. Dr. Bose 03/01/2016 3:12 PM End of Report [facility] 02/29/2016 9:49 EDT 03/01/2016 9:49 EDT Bill Tsai DO PATHOLOGY ORDER [facility] [address] [place] [address] documented in this encounter Visit Diagnoses Not on filedocumented in this encounter Care Teams Group Underwriter Relationship Specialty Start Date End Date Inez Jung NP [address] [place] [phone] PCP - General 10/20/10 03/04/16 documented as of this encounter
--- OUTSIDE RECORDS SUMMARY | 2024-03-10 04:55 | XMS_ITS | Encounter Summary ---
Author Organization [facility] Address [address] [place] [address] Care Team Providers Care Nephrologist Name Role Phone JackInez NP Primary Care Provider [phone] Encounter Details Date Type Department Care Team (Late st Contact Info) Description 11/19/2012 Results Only [facility] Laboratory Services - [facility] ([facility] [address] [place], [place] [address] Dacia Pérez MD [address] [place] [phone] Social History Tobacco Use Types [...] Diagnosis Comments PAP TEST- RESULT ONLY Routine 11/19/2012 0:00 EDT documented in this encounter Results * PAP TEST- RESULT ONLY (11/19/2012 0:00 EDT) Pathology Report: CYTOPATHOLOGY REPORT Reports generated via electronic interface contain original data; however they are lacking the format of the original report. Caution should be taken when reading/interpreti ng unformatted reports. Name: ? JAIRO AYALA ? Accession #: ? [id number] ? : ? 1970 (Age: 42) ??F ?Collect Date: ? 11/19/2012 ? Location: ? [facility] ? Receive Date: ? 11/20/2012 ? Provider: DACIA PÉREZ MD Copy to: INEZ JACK OLIVE BRINE TESTER ? Final Report SPECIMEN ADEQUACY ? Satisfactory for Evaluation - transformation zone component present GENERAL CATEGORIZATION ? Negative for Intraepithelial Lesion or Malignancy ?? Specimen/Source: ??Pap Test, Source Not Provided, POW Imaging System with manual evaluation Document reviewed and electronically signed by: ? Tato Lange, CT(ASCP) ? Report ??Date: 11/25/2012 10:22 HPV with Pap Test ? Date Ordered: ? 11/25/2012 ? Status: ?? Signed Out ?Date Complete: ? 11/27/2012 ? By: ??System Interface ? Date Reported: ? 11/27/2012 ? Interpretation RESULT: Negative for HPV. No E6 or E7 mRNA is detected from HPV types 16,18,31,33,35, 39,45,51,52,56,58, 59,66, and 68 by explosives mixer operator mediated amplification. Comments Document reviewed and electronically signed by: ? System Interface ? Report date: 11/27/2012 By the signature above, the attending physician certifies that he/she has personally conducted a gross and/or microscopic examination of the described specimens and rendered or confirmed the above diagnosis. End of Report [facility] 11/19/2012 11/20/2012 Dacia Pérez MD PATHOLOGY ORDERABLES [facility] [address] [place] [address] documented in this encounter Visit Diagnoses Not on filedocumented in this encounter Care Teams Nephrologist Relationship Specialty Start Date End Date Inez Jack NP [address] [place] [phone] PCP - General 10/20/10 03/04/16 documented as of this encounter
--- OUTSIDE RECORDS SUMMARY | 2024-03-10 04:55 | XMS_ITS | Encounter Summary ---
Author Organization [facility] Address [address] [place] [address] Care Team Providers Care Scaffolder Name Role Phone Inez Jung KEYBOARD TEACHER Primary Care Provider [phone] Encounter Details Date Type Department Care Team (Latest Contact Info) Description 02/29/2016 9:18 EDT - 02/29/2016 23:59 EDT Hospital Encounter [address] [address] Unknown, Provider, Discharge Disposition: Home or Self Care Social History Tobacco Use Types Packs/Day Years Used Date Smoking Tobacco: Never Assessed Sex and Gender Information Value Date Recorded Sex Assigned at Not on file Gender Identity Not on file Sexual Orientation Not on file documented as of this encounter Discharge Disposition Disposition Code Departure Means Destination Home or Self Intermediate documented in this encounter Plan of Treatment Not on file documented as of this encounter Visit Diagnoses Not on filedocumented in this encounter Care Teams Scaffolder Relationship Specialty Start Date End Date Inez Jung NP [address] [place] [phone] PCP - General 10/20/10 03/04/16 documented as of this encounter
--- OUTSIDE RECORDS SUMMARY | 2024-03-10 04:55 | XMS_ITS | Encounter Summary ---
Author Organization [facility] Address [address] [place] [address] Care Team Providers Care Director Of Restaurant Name Role Phone Dacia Lee MD Primary Care Provider [phone] Encounter Details Date Type Department Care Team (Late st Contact Info) Description 07/17/2021 Lab Requisition [facility] Pathology & Laboratory Medicine - [facility] [address] [place], [place] [address] Outr Resulting Lab, Provider Social History Tobacco [...] Procedure Name Priority Date/Time Associated Diagnosis Comments HIV 1/2 ANTIGEN AND ANTIBODY, 4TH GENERATION Routine 07/17/2021 9:39 EST documented in this encounter Results * HIV 1/2 ANTIGEN AND ANTIBODY, 4TH GENERATION (07/17/2021 9:39 EST) HIV 1 and 2 Antibody/p24 Antigen, 4th Generation Negative Negative 07/18/2021 10:06 EST [facility] Comment:If acute HIV-1 infec tion is suspected in a high risk patient, submit plasma specimen for HIV-1 RNA quantitation test. Blood VENOUS BLOOD / Unknown 07/17/2021 9:39 EST 07/17/2021 21:38 EST Narrative [facility] - 07/18/2021 10:06 EST Fourth Generation assay performed on the Siemens Centaur XPT. Provider Outr Resulting Lab IMMUNOLOGY A ND SEROLOGY ORDERABLES Performing Organization Address City/State/[facility] Co de Phone Number [facility] [address] [place] [address] documented in this encounter Visit Diagnoses Not on filedocumented in this encounter Care Teams Director Of Restaurant Relationship Specialty Start Date End Date Dacia Lee MD [address] [place] [phone] PCP - General 03/05/16 documented as of this encounter
--- OUTSIDE RECORDS SUMMARY | 2024-03-10 04:55 | XMS_ITS | Encounter Summary ---
Author Organization [facility] Address [address] [place] [address] Care Team Providers Care Aircraft Maintenance Instructor Name Role Phone Dacia Lee MD Primary Care Provider [phone] Encounter Details Date Type Department Care Team (Late st Contact Info) Description 08/05/2023 Lab Requisition [facility] Pathology & Laboratory Medicine - [facility] [address] [place] [address] Outr Resulting Lab, Provider Social History Tobacco [...] Associated Diagnosis Comments LYME ANTIBODY CONFIRMATION Today 08/02/2023 12:50 EST LADARIUS ANTIBODY PANEL Routine 08/02/2023 12 :50 EST LYME AB Routine 08/02/2023 12:50 EST DOUBLE STRANDED DNA ANTIBODY, IGG Routine 08/02/2023 12:50 EST documented in this encounter Results * (ABNORMAL) LYME ANTIBODY CONFIRMATION (08/02/2023 12:50 EST) Lyme IgG Antibody Negative Negative 023 13:09 EST [facility] Comment:Specific anti-Borrel ia burgdorfei IgG antibodies are not detected. This does not exclude the possibility of B. burgdorferi infection. If exposure to B. burgdorferi is suspected, a second sample should be collected and tested 2-4 weeks later. Lyme IgM Antibody Positive(A) Negative 2022 13:09 [facility] Comment:Specific anti-Borrel ia burgdorfei IgM antibodies are detected. Lyme Antibody Confirmation Interpretation See Comment 08/06/2023 13:09 [facility] Comment:Indicative of possib le [...] a false-positive. Blood VENOUS BLOOD / Unknown 08/02/2023 12:50 EST 08/05/2023 16:33 EST Provider Outr Resulting Lab IMMUNOLOGY A ND SEROLOGY ORDERABLES [facility] [address] [place] [address] * LADARIUS ANTIBODY PANEL (08/02/2023 12:50 EST) Ro52 Anitbody, IgG <2.3 <20.0 CU 2022 15:05 [facility] Comment:Results were obtaine d with the obiwonA Flash Ro52 chemiluminescent immunoassay. Values obtained with different manufacturers' assay methods must not be used interchangeably. Ro60 Antibody, IgG <7.0 <20.0 CU 2022 15:05 [facility] Comment:Results were obtaine d with the obiwonA Flash Ro60 chemiluminescent immunoassay. Values obtained with different manufacturers' assay methods must not be used interchangeably. SSB Antibody, IgG <3.3 <20.0 CU 023 15:05 [facility] Comment:Results were obtaine d with the obiwonA Flash SS-B chemiluminescent immunoassay. Values obtained with different manufacturers' assay methods must not be used interchangeably. SM (Enriquez) Antibody, IgG <8.0 <20.0 CU 08/06/2023 15:05 EST [facility] Comment:Results were obtaine d with the obiwonA Flash Sm chemiluminescent immunoassay. Values obtained with different manufacturers' assay methods must not be used interchangeably. FLOOR FINISHER Antibody, IgG <6.0 <20.0 CU 023 15:05 EST [facility] Comment:Results were obtaine d with the obiwonA Flash FLOOR FINISHER chemilumenscent immunoassay. Values obtained with different manufacturers' assay methods may not be used interchangeably. Blood VENOUS BLOOD / Unknown 08/02/2023 12:50 EST 08/05/2023 16:33 EST Provider Outr Resulting Lab IMMUNOLOGY A ND SEROLOGY ORDERABLES Performing Organization Address [facility] de Phone Number [facility] [address] [place] [address] * (ABNORMAL) LYME AB (08/02/2023 12:50 EST) Lyme Ab Equivocal (A) Negative 08/06/2023 12:14 EST [facility] Comment: Lyme confirmation added by reflex. The Di[employer] Lyme Liaison Lyme Total Antibody Plus assay contains antigens from Borrelia burgdorferi, Borrelia garinii, and Borelia afzelli. Results from the second-step confirmation tests that detect only B. burgdorferi specific antigens should be interpreted with caution. Blood VENOUS BLOOD / Unknown 08/02/2023 12:50 EST 08/05/2023 16:33 EST Provider Outr Resulting Lab IMMUNOLOGY A ND SEROLOGY ORDERABLES Performing Organization Address [facility] de Phone Number [facility] [address] [place] [address] * DOUBLE STRANDED DNA ANTIBODY, IGG (08/02/2023 12:50 EST) dsDNA Ab, IgG <22.0 <27.0 IU/mL 08/06/2023 15:09 EST [facility] Comment: Negative: <27.0 IU/mL Indeterminate: 27.0 - 35.0 IU/mL Positive: >35.0 IU/mL Results were obtained with obiwonA Flash dsDNA chemiluminescent immunoassay. Values obtained with different manufacturers' assay methods may not be used interchangeably. Blood VENOUS BLOOD / Unknown 08/02/2023 12:50 EST 08/05/2023 16:33 EST Provider Outr Resulting Lab IMMUNOLOGY A ND SEROLOGY ORDERABLES [facility] [address] [place] [address] documented in this encounter Visit Diagnoses Not on filedocumented in this encounter Care Teams Aircraft Maintenance Instructor Relationship Specialty Start Date End Date Dacia Lee MD [address] [place] [phone] PCP - General 03/05/16 documented as of this encounter
--- OUTSIDE RECORDS SUMMARY | 2024-03-10 04:55 | XMS_ITS | Clinical Summary ---
Author Organization [facility] Address [address] [place] [address] Care Team Providers Care Manufacturing Scheduler Name Role Phone Dacia Lee MD Primary Care Provider [phone] Social History Tobacco Use Types Packs/Day Years Used Date Smoking Tobacco: Never Assessed Sex and Gender Information Value Date Recorded Sex Assigned at Not on file Gender Identity Not on file Sexual Orientation Not on file Plan of Treatment Health Maintenance Due Date Last Done Comments Hepatitis B Vaccine (1 of 3 - 19+ 3-dose series) 04/30 COVID-19 Vaccine ( season) 2023 Hepatitis C Screen Completed 07/17/2021 Procedures Procedure Name Priority Date/Time Associated Diagnosis Comments HEPATITIS C AB W REFLEX TO HCV RNA BY PCR Routine 07/17/2021 9:39 EST from Last 3 Months or Most Recently Relevant to Health Maintenance Results * HEPATITIS C AB W REFLEX TO HCV RNA BY PCR (07/17/2021 9:39 EST) Hep C Antibody Negative Negative 07/18/2021 10:22 EST [facility] Blood VENOUS BLOOD / Unknown 07/17/2021 9:39 EST 07/17/2021 21:38 EST Provider Outr Resulting Lab CHEMISTRY & BLOOD GAS ORDERABLES [facility] [address] [place] [address] from Last 3 Months or Most Recently Relevant to Health Maintenance Care Teams Manufacturing Scheduler Relationship Specialty Start Date End Date Dacia Lee MD [address] [place] [phone] PCP - General 03/05/16
--- OUTSIDE RECORDS SUMMARY | 2024-03-10 04:56 | XMS_ITS | Encounter Summary ---
Author Organization [facility] Address [address] [place] [address] Care Team Providers Care Desktop Support Associate Name Role Phone Unavailable Primary Care Provider Unavailabl e Encounter Details Date Type Department Care Team (Late st Contact Info) Description 07/13/2003 Results Only [facility] - Maple conversion [address] [place] [address] Mechelle Pan MD [address] [place] [address] [place] [address] Social History Tobacco Use Types Packs/Day Years Used Date Smoking Tobacco: Never Assessed Sex and Gender Information Value Date Recorded Sex Assigned at Not on file Gender Identity Not on file Sexual Orientation Not on file documented as of this encounter Plan of Treatment Not on file documented as of this encounter Procedures Procedure Name Priority Date/Time Associated Diagnosis Comments SURGICAL PATHOLOGY Routine 07/13/2003 0:00 EST documented in this encounter Results * SURGICAL PATHOLOGY (07/13/2003 0:00 EST) Pathology Report: SURGICAL PATHOLOGY REPORT Reports generated via electronic interface contain original data; however they are lacking the format of the original report. Caution should be taken when reading/interpreti ng unformatted reports. Name: ? JAIRO ROBLES ? Accession #: ? [id number] ? : ? 1970 (Age: 33) ??F ? Collect Date: ? 07/13/2003 ? Location: ? [facility] ? Receive Date: ? 07/15/2003 ? Provider: MECHELLE PAN MD Copy to: BREE GTZ MD ? Final Pathologic Diagnosis: ? Cervix, LEEP: 1. ?High grade squamous intraepithelial lesion (MARLA II). 2. ?Surgical margins negative for dysplasia. Document reviewed and electronically signed by: Parvez Meier MD Report ??Date: 07/16/2003 16:57 By the signature above, the attending physician certifies that he/she has personally conducted a gross and/or microscopic examination of the described specimens and rendered or confirmed the above diagnosis. Specimen(s) Received: ? LEEP Cx Clinical History: ? 05/28 Cx bx MARLA II-III; LMP: 07/06/03 Gross Description: ? Received in formalin labelled Travis and cervix is a 1.7 x 1.6 cm LEEP biopsy of cervix excised to a depth of 0.3 cm. ??The specimen is partially covered by pérez-white ectocervical tissue and demonstrates a central 1.1 cm linear os. ??The endocervical area is inked blue. ??The remainder of the specimen is inked black. ??The specimen is serially sectioned and entirely submitted sequentially in blocks (A1)-(A4). ??(Jose Cruz Dawson/kiran End of Report [facility] 07/13/2003 07/15/2003 9:2 8 EST Mechelle Pan MD PATHOLOGY ORDERABLES [facility] [address] [place] [address] documented in this encounter Visit Diagnoses Not on filedocumented in this encounter
--- OUTSIDE RECORDS SUMMARY | 2024-03-10 04:56 | XMS_ITS | Encounter Summary ---
Author Organization [facility] Address [address] [place] [address] Care Team Providers Care Regulatory Compliance Director Name Role Phone Unavailable Primary Care Provider Unavailabl e Encounter Details Date Type Department Care Team (Late st Contact Info) Description 02/17/2009 Orders Only [facility] Services - [facility] [place] [address] [place], [place] [id number] Inez Jack, DAMARIS [address] [place] [address] Social History Tobacco Use Types Packs/Day Years Used Date Smoking Tobacco: Never Assessed Sex and Gender Information Value Date Recorded Sex Assigned at Not on file Gender Identity Not on file Sexual Orientation Not on file documented as of this encounter Plan of Treatment Not on file documented as of this encounter Procedures Procedure Name Priority Date/Time Associated Diagnosis Comments CYTOPATHOLOGY Routine 02/17/2009 0:00 EDT documented in this encounter Results * CYTOPATHOLOGY (02/17/2009 0:00 EDT) Pathology Report: CYTOPATHOLOGY REPORT ? Reports generated via electronic interface contain original data; ? however they are lacking the format of the original report. ? Caution should be taken when reading/interpreti ng unformatted reports. ? Name: ? MORENO, JAIRO ? Accession #: ? [id number] ? : ? 1970 (Age: 38) ??F ?Collect Date: ? 02/17/2009 ? Location: ? [facility] ? Receive Date: ? 02/18/2009 ? Provider: ?INEZ JACK OVEN TENDER ? Copy to: ? Specimen/Source: ?Pap Test, Cervix/Endocervix, ThinPrep Imaging System ? with manual evaluation ? Last Menstrual Period: ? 6/10/09 ? Hormonal/Contracep tive Status: ? Tubal ligation ? Previous Gynecologic Pathology: ? MARLA II ? MARLA III ? HPV: + ? Treatment History: ? LEEP: 11/18/03 ? Cervical biopsy: 10/29/03 for MARLA II & III ? SPECIMEN ADEQUACY ? Satisfactory for Evaluation ? - transformation zone component present ? GENERAL CATEGORIZATION ? Negative for Intraepithelial Lesion or Malignancy ? Document reviewed and electronically signed by: ? Radha Patterson, CT(ASCP)(IAC) ? Report Date: ??02/23/2009 15:35 ? End of Report ? [facility] 02/17/2009 02/18/2009 Inez Jack NP PATHOLOGY ORDERABLES [facility] [address] [place] [address] documented in this encounter Visit Diagnoses Not on filedocumented in this encounter
--- OUTSIDE RECORDS SUMMARY | 2024-03-10 04:56 | XMS_ITS | Encounter Summary ---
Author Organization [facility] Address [address] [place] [address] Care Team Providers Care Direct Support Professional Caregiver Name Role Phone Unknown, Provider Primary Care Provider [phone] Encounter Details Date Type Department Care Team (Late st Contact Info) Description 10/18/2010 Results Only [facility] Laboratory Services - [facility] ([facility]) [address] [place], [place] [address] Ivana Garcia MD [address] [facility] [place] [address] Social History Tobacco Use Types Packs/Day Years Used Date Smoking Tobacco: Never Assessed Sex and Gender Information Value Date Recorded Sex Assigned at Not on file Gender Identity Not on file Sexual Orientation Not on file documented as of this encounter Plan of Treatment Not on file documented as of this encounter Procedures Procedure Name Priority Date/Time Associated Diagnosis Comments SURGICAL PATHOLOGY Routine 10/18/2010 0:00 EST documented in this encounter Results * SURGICAL PATHOLOGY (10/18/2010 0:00 EST) Pathology Report: SURGICAL PATHOLOGY REPORT ? Reports generated via electronic interface contain original data; ? however they are lacking the format of the original report. ? Caution should be taken when reading/interpreti ng unformatted reports. ? Name: ? ENRIQUEZ, JAIRO ? Accession #: ? [id number] ? : ? 1970 (Age: 40) ??F ? Collect Date: ? 10/18/2010 ? Location: ? [facility] ? Receive Date: ? 10/18/2010 ? Provider: IVANA GARCIA MD ? Copy to: CASSIE JACK TUNA PURSE SEINER ? Final Pathologic Diagnosis: ? Endometrium, biopsy: ? - Early secretory endometrium with focal tubal metaplasia. ? Document reviewed and electronically signed by: ? ELISE N KALOF MD ? Report ??Date: 10/23/2010 17:13 ? By the signature above, the attending physician certifies that he/she has ? personally conducted a gross and/or microscopic examination of the described ? specimens and rendered or confirmed the above diagnosis. ? Specimen(s) Received: ? Endometrial biopsy ? Clinical History: ? Menorrhagia; LMP: 09/30/10; clinical diagnosis code: ??626.2 ? Gross Description: ? Received in formalin labelled Enriquez, Jairo and endometrium is 1 cc of ?? light sanchez tissue fragment. ??The specimen is submitted entirely in one cassette ?? following filtration. ??(J.D. Tessitore)/kmm ? End of Report ? [facility] 10/18/2010 10/18/2010 9:0 0 EST Ivana Garcia MD PATHOLOGY ORDERABLES Performing Organization Address City/State/[facility] Co de Phone Number [facility] [address] [place] [address] documented in this encounter Visit Diagnoses Not on filedocumented in this encounter Care Teams Direct Support Professional Caregiver Relationship Specialty Start Date End Date Unknown, Provider, PCP - General 10/18/10 10/19/10 documented as of this encounter
--- OUTSIDE RECORDS SUMMARY | 2024-03-10 04:56 | XMS_ITS | Encounter Summary ---
Author Organization [facility] Address [address] [place] [address] Care Team Providers Care Disease Case Manager Rn Name Role Phone Unavailable Primary Care Provider Unavailabl e Encounter Details Date Type Department Care Team (Late st Contact Info) Description 06/23/2003 Results Only [facility] - Maple conversion [address] [place] [address] Mechelle Pan MD [address] [place] [address] [place] [address] Social History Tobacco Use Types Packs/Day Years Used Date Smoking Tobacco: Never Assessed Sex and Gender Information Value Date Recorded Sex Assigned at Not on file Gender Identity Not on file Sexual Orientation Not on file documented as of this encounter Plan of Treatment Not on file documented as of this encounter Procedures Procedure Name Priority Date/Time Associated Diagnosis Comments SURGICAL PATHOLOGY Routine 06/23/2003 0:00 EST documented in this encounter Results * SURGICAL PATHOLOGY (06/23/2003 0:00 EST) Pathology Report: SURGICAL PATHOLOGY REPORT Reports generated via electronic interface contain original data; however they are lacking the format of the original report. Caution should be taken when reading/interpreti ng unformatted reports. Name: ? JAIRO ROBLES ? Accession #: ? [id number] ? : ? 1970 (Age: 33) ??F ? Collect Date: ? 06/23/2003 ? Location: ? [facility] ? Receive Date: ? 06/25/2003 ? Provider: MECHELLE PAN MD Copy to: BREE GTZ MD ? Final Pathologic Diagnosis: ? Cervix, 9 o' clock, biopsy: - High grade squamous intraepithelial lesion (MARLA II and MARLA III). Document reviewed and electronically signed by: Burke Moore MD Report ??Date: 06/29/2003 17:10 By the signature above, the attending physician certifies that he/she has personally conducted a gross and/or microscopic examination of the described specimens and rendered or confirmed the above diagnosis. Specimen(s) Received: ? Cervical bx 9:00 Clinical History: ? ASCUS (+) HPV Gross Description: ? Received in formalin labelled Travis and cx 9 is a sanchez-white 0.3 x 0.3 x 0.2 cm soft tissue fragment. ??The specimen is entirely submitted in one cassette. ??(Joanne Barragan)/[facility] End of Report [facility] 06/23/2003 06/25/2003 13: 25 EST Mechelle Pan MD PATHOLOGY ORDERABLES [facility] [address] [place] [address] documented in this encounter Visit Diagnoses Not on filedocumented in this encounter
[2024-03-10 12:16] LABS: Kit/Specimen SENT
== END 2024-03-10 04:33 | disposition home or self-care (01) ==
LOC: LBO 04:32
PROVIDERS: PCP Family Medicine; Visit Provider Family Medicine
DX: Z00.00 Encounter for general adult medical examination without abnormal findings (principal)
CPT/HCPCS: 36415

== ENCOUNTER 2025-03-10 02:10 | Outpatient (CLI) | payer BC, SELFPAY ==
--- NOTE | 2025-03-10 12:15 | DI.MAMMO_ITS ---
Exam(s) MAMMO SCREENING EXAM: MAMMO SCREENING CLINICAL HISTORY: screening TECHNIQUE: Bilateral full field digital CC and MLO mammographic images were obtained with 3D tomosynthesis and utilizing computer aided detection (CAD). COMPARISON: Comparison is made with prior examinations. FINDINGS: Masses/Architectural Distortion: No suspicious masses or areas of architectural distortion are present. The patient has a had bilateral breast reduction in the past. Microcalcifications: No suspicious pleomorphic-type are seen. Skin Thickening/Nipple Retraction: None. IMPRESSION: 1. No significant interval change with no specific features of malignancy noted. 2. Unless there is more urgent need, screening mammography is recommended, as per [place] [employer] guidelines. BI-RADS Category 2 - Benign Findings Breast Density - Category B - There are scattered areas of fibroglandular density. Breast density Category C or D implies that the patient has dense breast tissue. Dense breast tissue can make it harder to find cancer on a mammogram. Dense breast tissue is also associated with an increased risk of breast cancer. This information about the result of the mammogram report was provided to the patient to raise their awareness. Use this report when you speak with the patient about their risks for breast cancer, which includes their family history. At that time, you may recommend additional screening tests (Ultrasound or MRI) as these tests may add significant information. A negative radiographic report should not delay biopsy if a dominant or clinically suspicious mass is present. Up to ten percent of cancers are not identified on mammography. A negative report may reinforce clinical impression. Adenosis and dense breasts may obscure an underlying neoplasm. False positive reports average 6 to 10%. Patient will receive a letter notifying them of these results.
== END 2025-03-10 02:30 ==
LOC: DI 02:10
PROVIDERS: PCP Emergency Medicine Undersea and Hyperbaric Medicine; Visit Provider Nurse Practitioner Women's Health
DX: Z12.31 Encounter for screening mammogram for malignant neoplasm of breast (principal); R92.323 Mammographic fibroglandular density, bilateral breasts
CPT/HCPCS: 77063; 77067

== ENCOUNTER 2025-04-07 03:54 | Outpatient (CLI) | payer BC, SELFPAY ==
[2025-04-07 12:55] LABS: Kit/Specimen SENT
[2025-04-07 13:04] LABS: Abs Immature Grans 0.02 10^3/uL (0.0-0.06); HCT 37.9 % (36.0-46.0); HGB 13.5 g/dL (11.2-15.7); Immature Grans % 0.2 %; MCH 31.4 pg (27.0-33.0); MCHC 35.6 % (32.0-36.0); MCV 88 fL (80-95); MPV 10.1 fL (8.0-11.0); Platelet Count 278 10^3/uL (130-400); RBC 4.30 10^6/uL (3.93-5.22); RDW 12.2 % (11.7-14.6); RDW-SD 39.5 fL; WBC 9.22 10^3/uL (4.4-10.8)
[2025-04-07 13:59] LABS: ALT 26 U/L (14-59); AST 22 U/L (15-37); Albumin 3.9 g/dL (3.4-5.0); Alkaline Phosphatase 77 U/L (46-116); Anion Gap 7.7 mmol/L (3-11); BUN 27 mg/dL (7-18); Bilirubin, Total 0.9 mg/dL (0.2-1.0); CO2 29.3 mmol/L (21.0-32.0); Calcium 9.4 mg/dL (8.5-10.1); Calculated LDL 106 mg/dL (<100); Chloride 104 mmol/L (98-107); Cholesterol 175 mg/dL (<200); Estimated GFR 87.50 (mL/min/1.73m2); Ferritin 144 ng/mL (8-252); Glucose 104 mg/dL (74-106); HDL Cholesterol 43 mg/dL (>or=50); Potassium 3.8 mmol/L (3.5-5.1); Sodium 141 mmol/L (136-145); TSH 1.43 uIU/mL (0.36-3.74); Total Protein 7.3 g/dL (6.4-8.2); Triglyceride 134 mg/dL (<150)
[2025-04-07 23:07] LABS: T3,Free 4.2 pg/mL (2.8-5.3)
[2025-04-08 18:42] LABS: Iron 91 ug/dL (50-170); Total Iron Binding Capacity 296 ug/dL (250-450); Transferrin Sat 31 % (15-50)
[2025-04-08 19:35] LABS: Vitamin D 25 Total 80 ng/mL (30-100)
[2025-04-11 17:47] LABS: Estradiol, Mass Spectrometry <10 pg/mL
[2025-04-14 10:14] LABS: T3 (Triiodothyronine) Reverse 15 ng/dL (10-24)
[2025-04-17 19:33] LABS: Testosterone, Free 1.1 pg/mL (0.1-6.4)
== END 2025-04-07 03:55 | disposition home or self-care (01) ==
LOC: LBO 03:54
PROVIDERS: PCP Emergency Medicine Undersea and Hyperbaric Medicine; Visit Provider Naturopath
DX: N95.1 Menopausal and female climacteric states (principal); R53.83 Other fatigue; Z13.220 Encounter for screening for lipoid disorders; E55.9 Vitamin D deficiency, unspecified; A69.20 Lyme disease, unspecified
CPT/HCPCS: 36415; 80053; 80061; 82306; 83090; 84402; 84403; 82670; 82679; 82728; 83540; 83550; 84144; 84439; 84443; 84481; 84482; 85025; 86376; 86800